=== PATIENT | male | born 1970 | race Caucasian/White ===

== ENCOUNTER 2020-11-24 11:11 | Day surgery (SDC) | payer OTHER ==
[~2020-11-24] VITALS: Ht 180.3 cm; Wt 134.0 kg
[~2020-11-24 11:11] MED LIST: ALBU90OI INH; AZIT500 PO; Adipex-P37.5 M1; BISHYD2.5 PO; Bisoprolol Fumar5 MG; CODACE30 PO; CODGUAEL PO; Fenofibrate200 MG PO; IBUP800 PO; LEVSOD50 PO; Norco 7.5-3251 EACH; PROCODE120 PO; Percocet 5-3251 EACH; RXCODACET PO; RXNAPNA550 PO; Zithromax250 MG PO
--- NOTE | 2020-11-24 11:38 | NUR ---
11/24/20 1138 Karley Pereira charted by brenden de dios rn
[2020-11-24] MEDS ORDERED: NAPR220 PO (11:49)
--- NOTE | 2020-11-24 13:10 | NUR ---
11/24/20 1310 Helen Koroma EPI 0.15MG MIXED WITH BUPIVACAINE 0.5% FOR A MIXTURE OF BUPIVACAINE 0.5% W/EPI 1:200,000 FOR INJECTION BY PHYSICIAN AT END OF CASE
== END 2020-11-24 14:33 | disposition home or self-care (01) ==
LOC: ORSCSDS 11:11
PROVIDERS: Podiatrist Foot & Ankle Surgery
PROC: 0SGN04Z Fusion of Left Metatarsal-Phalangeal Joint with Internal Fixation Device, Open Approach (ICD-10-PCS; principal; 2020-11-24 12:30)
DX: M20.22 Hallux rigidus, left foot (principal); I10 Essential (primary) hypertension; G47.33 Obstructive sleep apnea (adult) (pediatric); E11.9 Type 2 diabetes mellitus without complications; Z87.891 Personal history of nicotine dependence; E66.01 Morbid (severe) obesity due to excess calories; Z68.41 Body mass index [BMI] 40.0-44.9, adult; Z79.899 Other long term (current) drug therapy
CPT/HCPCS: 82947; A9270; C1713; C1769; J0171; J0690; J1100; J1885; J2250; J2405; J2704; J3010; J7120

== ENCOUNTER → 2022-09-04 | Outpatient (CLI) | payer BC ==
[~2022-09-04] MED LIST changes: +NAPR220 PO
[2022-09-04 12:17] LABS: BASOPHILS ABSOLUTE AUTO 0.06 K/mm3 (0.00-0.23); BASOPHILS PERCENT AUTO 1 % (0-2); EOSINOPHILS ABSOLUTE AUTO 0.23 K/mm3 (0.00-0.68); EOSINOPHILS PERCENT AUTO 4 % (0-6); Hemoglobin 16.8 g/dL (13.5-17.5); IMMATURE GRAN ABSOLUTE AUTO 0.07 K/mm3 (0.00-0.10); IMMATURE GRAN PERCENT AUTO 1 % (0-1); LYMPHOCYTES ABSOLUTE AUTO 1.52 K/mm3 (0.84-5.20); LYMPHOCYTES PERCENT AUTO 23 % (21-46); MONOCYTES ABSOLUTE AUTO 0.72 K/mm3 (0.16-1.47); MONOCYTES PERCENT AUTO 11 % (4-13); Mean Corpuscular HGB 29.9 pg (26.0-34.0); Mean Corpuscular HGB Conc 33.6 g/dL (31.5-36.5); Mean Corpuscular Volume 89 fL (80-100); Mean Platelet Volume 10.3 fL (9.1-12.4); NEUTROPHILS PERCENT AUTO 60 % (41-73); Platelet Count 181 K/mm3 (150-400); RDW Coefficient Variation 13.3 % (11.7-14.2); RDW Standard Deviation 43.3 fL (35.1-46.3); Red Blood Cell Count 5.62 M/mm3 (4.30-5.90)
[2022-09-04 12:27] LABS: Albumin, Blood 4.2 g/dL (3.4-5.0); Albumin/Globulin Ratio 1.2 (0.8-1.8); Bilirubin, Total 0.3 mg/dL (0.1-1.0); Bun/Creatinine Ratio 22.4 (12.0-20.0); Calcium, Blood 9.6 mg/dL (8.5-10.1); Creatinine, Blood 0.76 mg/dL (0.60-1.20); Globulin, Blood 3.5 g/dL (2.2-4.0); Potassium, Blood 4.3 mmol/L (3.5-5.5); Total Protein, Blood 7.7 g/dL (6.4-8.2)
== END | disposition home or self-care (01) ==
LOC: LAB SHORT 12:08 → LAB 12:08
PROVIDERS: Family Medicine
DX: R07.89 Other chest pain (principal); R06.00 Dyspnea, unspecified
CPT/HCPCS: 80053; 83880; 84484; 85025; 85379

== ENCOUNTER 2024-08-10 10:27 | Observation (INO) | payer BC ==
[~2024-08-10] VITALS: Ht 177.8 cm; Wt 139.2 kg
[2024-08-10] VITALS (14 sets, daily range): BP systolic 120–174; BP diastolic 74–136
[~2024-08-10 10:27] MED LIST changes: -Bisoprolol Fumar5 MG; +Bisoprolol Fumar5 MG PO; -LEVSOD50 PO; +LEVSOD75 PO
[2024-08-10] MEDS ORDERED: Lactated Ringer's 1,000 ML IV SCH ×2 (10:50→16:35)
[2024-08-10 11:29] LABS: BASOPHILS ABSOLUTE AUTO 0.11 K/mm3 (0.00-0.23); BASOPHILS PERCENT AUTO 2 % (0-2); EOSINOPHILS ABSOLUTE AUTO 0.07 K/mm3 (0.00-0.68); EOSINOPHILS PERCENT AUTO 1 % (0-6); Hematocrit 52.6 % (37.0-53.0); Hemoglobin 18.5 g/dL (13.5-17.5); IMMATURE GRAN ABSOLUTE AUTO 0.16 K/mm3 (0.00-0.10); IMMATURE GRAN PERCENT AUTO 2 % (0-1); LYMPHOCYTES ABSOLUTE AUTO 1.16 K/mm3 (0.84-5.20); LYMPHOCYTES PERCENT AUTO 17 % (21-46); MONOCYTES ABSOLUTE AUTO 0.88 K/mm3 (0.16-1.47); MONOCYTES PERCENT AUTO 13 % (4-13); Mean Corpuscular HGB 29.6 pg (26.0-34.0); Mean Corpuscular HGB Conc 35.2 g/dL (31.5-36.5); Mean Corpuscular Volume 84 fL (80-100); Mean Platelet Volume 9.4 fL (9.1-12.4); NEUTROPHILS ABSOLUTE AUTO 4.65 K/mm3 (1.96-9.15); NEUTROPHILS PERCENT AUTO 66 % (41-73); Platelet Count 174 K/mm3 (150-400); RDW Coefficient Variation 13.8 % (11.7-14.2); RDW Standard Deviation 42.5 fL (35.1-46.3); Red Blood Cell Count 6.24 M/mm3 (4.30-5.90); White Blood Cell Count 7.03 K/mm3 (4.00-11.30)
[2024-08-10 11:57] LABS: Albumin, Blood 4.3 g/dL (3.4-5.0); Bilirubin, Total 1.1 mg/dL (0.1-1.0); Bun/Creatinine Ratio 15.5 (12.0-20.0); Calcium, Blood 9.8 mg/dL (8.5-10.1); Creatinine, Blood 0.58 mg/dL (0.60-1.20); Globulin, Blood 4.1 g/dL (2.2-4.0); Magnesium, Blood 2.1 mg/dL (1.6-2.4); Phosphorus, Blood 1.5 mg/dL (2.5-4.9); Total Protein, Blood 8.4 g/dL (6.4-8.2)
[2024-08-10] MEDS ORDERED: Ondansetron HCl 2 MG / ML 2ML Vial IV ONE (12:15)
[2024-08-10] MEDS ORDERED: Famotidine 20 MG Tab PO ONE (12:15)
[2024-08-10] MEDS ORDERED: Mag Hydrox/AL Hydrox/Simeth 30 ML UDC PO ONE (12:15)
[2024-08-10] MEDS ORDERED: Potassium Chloride 20 MEQ TabCR PO ONE (12:20)
[2024-08-10] MEDS ORDERED: NS 1,000 ML IV SCH (12:20)
[2024-08-10] MEDS ORDERED: Potassium Chloride 20 MEQ/15 ML UDC PO ONE (16:45)
[2024-08-10] MEDS ORDERED: D5W-LR 1,000 ML IV SCH (16:55)
[2024-08-10] MEDS ORDERED: Potassium Chl 20MEQ/Water100ML 100 ML IV ONE (16:55)
[2024-08-10] MEDS ORDERED: Insulin Human Regular 100 UNIT in NS 100 ML IV SCH (16:55)
[2024-08-10 17:04] LABS: Bun/Creatinine Ratio 14.2 (12.0-20.0); Calcium, Blood 8.9 mg/dL (8.5-10.1); Creatinine, Blood 0.56 mg/dL (0.60-1.20); Potassium, Blood 3.9 mmol/L (3.5-5.5)
[2024-08-10] MEDS ORDERED: FLU VACC TS2024-25(6MOS UP)/PF 45 MCG/0.5 ML SYRINGE IM SCH (17:10)
[2024-08-10] MEDS ORDERED: Ondansetron HCl 2 MG / ML 2ML Vial IV PRN (17:10)
[2024-08-10] MEDS ORDERED: D5W-1/2NS 1,000 ML IV SCH (17:10)
[2024-08-10] MEDS ORDERED: Sodium Phosphate 30 MM in Dextrose 5% 500 ML IV STA (17:17)
[2024-08-10] MEDS ORDERED: NS 1,000 ML IV ONE (17:39)
[2024-08-10] MEDS ORDERED: Enoxaparin 40 MG/0.4 ML SYR SC SCH (18:00)
[2024-08-10] MEDS ORDERED: METF500 PO (18:38)
[2024-08-10] MEDS ORDERED: ATOR80 PO (18:40)
[2024-08-10 18:41] LABS: Bun/Creatinine Ratio 12.8 (12.0-20.0); Calcium, Blood 8.7 mg/dL (8.5-10.1); Creatinine, Blood 0.55 mg/dL (0.60-1.20); Potassium, Blood 3.8 mmol/L (3.5-5.5)
[2024-08-10] MEDS ORDERED: LIDO700A20 TOP (18:41)
[2024-08-10] MEDS ORDERED: TRIA50 PO (18:41)
[2024-08-10] MEDS ORDERED: JARDIANCE25 MG PO (18:42)
--- NOTE | 2024-08-10 18:51 | NUR ---
PT ARRIVES TO ICU 8 FROM ER AT 1825. PT IS A/O X4, ABLE TO AMB SELF TO BED FROM [facility]. ON INSULIN GTT AT 1.5 UNITS/HR WITH D5LR AT 150ML/HR. POTASSIUM REPLACEMENT FINISHING UP. PT STATES HE USES HOME CPAP AT NIGHT AND IS TEXTING FAMILY TO BRING IT IN . NO SIGN OF DISTRESS.
--- NOTE | 2024-08-10 20:13 | NUR ---
ASSUMPTION OF CARE ASSUMED CARE OF PATIENT AT 1900. BEDSIDE SHIFT REPORT RECEIVED FROM MARTINE RN. PT RESTING IN BED, ALERT AND ORIENTED X3, UNSURE OF MONTH/YEAR. PT ANSWERS QUESTIONS APPROPRIATELY, FOLLOWS DIRECTION WHEN PROMPTED AND IS ABLE TO MAKE HIS NEEDS KNOWN. PT MOVES EXTREMITIES EQUALLY BILATERALLY. PT COMPLAINING OF 5/10 PAIN IN HIS BACK WHICH HE STATES IS CHRONIC FOR HIM. HR 90-110 SINUS, MAP >65, PT DENIES CP/PRESSURE. PT ON RA, OXYGEN SATURATION >95%. ABDOMEN SOFT, BOWEL TONES ACTIVE THROUGHOUT. PIV IN PLACE TO RAC AND TWO IN PLACE TO THE LAC. INSULIN INFUSING AT 1.12UNITS/HR, D5 LR INFUSING AT 150MLS/HR. BED IN LOWEST POSITION, CALL LIGHT WITHIN REACH, CARE CONTINUES.
[2024-08-10] MEDS ORDERED: NS 250 ML IV PRN (20:30)
[2024-08-11] VITALS (19 sets, daily range): BP systolic 124–174; BP diastolic 60–128
[2024-08-11 00:10] LABS: Bun/Creatinine Ratio 10.9 (12.0-20.0); Calcium, Blood 8.5 mg/dL (8.5-10.1); Creatinine, Blood 0.55 mg/dL (0.60-1.20); Potassium, Blood 3.8 mmol/L (3.5-5.5)
[2024-08-11] MEDS ORDERED: Potassium Chl 20MEQ/Water100ML 100 ML IV SCH (01:15)
[2024-08-11] MEDS ORDERED: D5W-1/2NS 1,000 ML IV SCH (02:10)
[2024-08-11 05:09] LABS: BASOPHILS ABSOLUTE AUTO 0.06 K/mm3 (0.00-0.23); BASOPHILS PERCENT AUTO 1 % (0-2); EOSINOPHILS PERCENT AUTO 2 % (0-6); Hematocrit 47.2 % (37.0-53.0); Hemoglobin 16.1 g/dL (13.5-17.5); IMMATURE GRAN PERCENT AUTO 2 % (0-1); LYMPHOCYTES ABSOLUTE AUTO 1.29 K/mm3 (0.84-5.20); LYMPHOCYTES PERCENT AUTO 21 % (21-46); MONOCYTES ABSOLUTE AUTO 0.94 K/mm3 (0.16-1.47); MONOCYTES PERCENT AUTO 15 % (4-13); Mean Corpuscular HGB Conc 34.1 g/dL (31.5-36.5); Mean Corpuscular Volume 88 fL (80-100); Mean Platelet Volume 8.9 fL (9.1-12.4); NEUTROPHILS ABSOLUTE AUTO 3.71 K/mm3 (1.96-9.15); NEUTROPHILS PERCENT AUTO 60 % (41-73); Platelet Count 159 K/mm3 (150-400); RDW Coefficient Variation 14.4 % (11.7-14.2); RDW Standard Deviation 45.8 fL (35.1-46.3); Red Blood Cell Count 5.37 M/mm3 (4.30-5.90)
[2024-08-11 05:50] LABS: Albumin, Blood 3.6 g/dL (3.4-5.0); Albumin/Globulin Ratio 1.1 (0.8-1.8); Bilirubin, Total 0.5 mg/dL (0.1-1.0); Bun/Creatinine Ratio 12.3 (12.0-20.0); Calcium, Blood 8.6 mg/dL (8.5-10.1); Creatinine, Blood 0.49 mg/dL (0.60-1.20); Globulin, Blood 3.4 g/dL (2.2-4.0); Magnesium, Blood 2.2 mg/dL (1.6-2.4); Phosphorus, Blood 1.4 mg/dL (2.5-4.9); Potassium, Blood 3.2 mmol/L (3.5-5.5)
[2024-08-11] MEDS ORDERED: Levothyroxine Sodium 0.075 MG Tab PO SCH (06:00)
[2024-08-11] MEDS ORDERED: Lidocaine 4% 1 Patch TOP PRN (06:30)
[2024-08-11] MEDS ORDERED: Potassium Phosphate Dibasic 30 MM in Dextrose 5% 500 ML IV STA (06:37)
--- NOTE | 2024-08-11 06:47 | NUR ---
SHIFT SUMMARY NO ACUTE CHANGES THIS SHIFT. PT CONTINUES TO REST IN BED, SLEEPING BUT AROUSABLE. PT ALERT AND ORIENTED, ANSWERS QEUSTIONS APPROPRIATELTY, FOLLOWS DIRECTION WEHN PROMPTED AND IS ABLE TO MAKE HIS NEEDS KNOWN. PT MOVES EXTREMITIES EQUALLY BILATERALLY, AMBULATES IN THE ROOM WITH SBA. HR 90-110'S SINUS MAP >65. PT ON RA, CPAP AT NOC, OXYGEN SATURATION >95%. ABDOMEN SOFT, BOWEL TONES ACTIVE THROUGHOUT. PT USES URINAL TO VOID. PIV IN PLACE TO RAC AND TWO IN THE LAC. INSULIN AND D10 PLACED ON HOLD THIS AM PER DR. RODRIGUEZ DUE TO LAB RESULTS. BED IS IN LOWEST POSITION, CALL LIGHT WITHIN REACH, CARE CONTINUES.
[2024-08-11] MEDS ORDERED: Potassium Chloride 20 MEQ TabCR PO ONE (07:00)
--- NOTE | 2024-08-11 07:55 | NUR ---
START OF SHIFT THIS NURSE ASSUMED CARE AT APPROXIMATELY 0700. PT APPROPRIATE AND PLEASANT ON CPAP. PT DENIES ANY COMPLAINTS OR REQUESTS. WILL CONTINUE WITH THE PLAN OF CARE.
[2024-08-11] MEDS ORDERED: Potassium Phosphate Dibasic 30 MM in Dextrose 5% 500 ML IV ONE (08:00)
[2024-08-11] MEDS ORDERED: Metoprolol Succinate 50 MG TABCR PO SCH ×2 (09:00)
[2024-08-11 10:00] LABS: Bun/Creatinine Ratio 11.2 (12.0-20.0); Calcium, Blood 8.7 mg/dL (8.5-10.1); Creatinine, Blood 0.45 mg/dL (0.60-1.20); Potassium, Blood 3.6 mmol/L (3.5-5.5)
[2024-08-11 12:42] LABS: Calcium, Blood 8.4 mg/dL (8.5-10.1); Creatinine, Blood 0.42 mg/dL (0.60-1.20); Potassium, Blood 3.5 mmol/L (3.5-5.5)
[2024-08-11] MEDS ORDERED: Insulin Glargine-Yfgn 100 Unit/mL 3 ML SYR SC SCH (14:00)
[2024-08-11] MEDS ORDERED: Potassium Chloride 40 MEQ in NS 250 ML IV ONE (15:40)
[2024-08-11] MEDS ORDERED: Insulin Human Lispro 100 Units/ML 3ML Syringe SC SCH (16:30)
--- NOTE | 2024-08-11 17:12 | NUR ---
SHIFT SUMMARY PT RESTING COMFORTABLY IN BED. PT STATED THAT HIS CHRONIC BACK PAIN WAS ALLEVIATED WITH REPOSITIONING AND WITH THE LIDOCAINE PATCH. INSULIN GTT HAS BEEN OFF SINCE APPROXIMATELY 1500 PER MD REQUEST. SLIDING SCALE AND LONG ACTING HAVE BEEN ORDERED, SEE EMAR. THE SISTER OF THE PT CAME TO BEDSIDE. PT HAS NO FURTHER COMPLAINTS OR CONCERNS AT THIS TIME. WILL CONTINUE WITH THE PLAN OF CARE UNTIL REPORT IS GIVEN TO ONCOMING STAFF.
--- NOTE | 2024-08-11 19:31 | NUR ---
ASSUMPTION OF CARE ASSUMED CARE OF PATIENT AT 1900, BEDSIDE SHIFT REPORT RECEIVED FROM MARTINE RN. PT RESTING IN BED, ALERT AND ORIENTED X4. PT ANSWERS QUESTIONS APPROPRIATELY, FOLLOWS DIRECTION WHEN PROMPTED AND IS ABLE TO MAKE HIS NEEDS KNOWN. PT MOVES EXTREMITIES EQUALLY BIALTERALLY, AMBULATES IN THE ROOM WITH MINIMAL ASSISTANCE FOR CORD MANAGEMENT. HR 90'S SINUS, MAP >65. PT ON RA, CPAP AT NOC, OXYGEN SATURATION >95%. ABDOMEN SOFT, BOWEL TONES ACTIVE THROUGHOUT. PT AMBULATES TO THE BEDSIDE TOILET TO VOID. PIV IN PLACE TO RAC, AND TWO IN THE LAC SL. BED IN LOWEST POSITION, CALL LIGHT WITHIN REACH, CARE CONTINUES.
[2024-08-11 20:01] LABS: Bun/Creatinine Ratio 9.8 (12.0-20.0); Calcium, Blood 8.8 mg/dL (8.5-10.1); Creatinine, Blood 0.51 mg/dL (0.60-1.20); Potassium, Blood 3.5 mmol/L (3.5-5.5)
[2024-08-12 03:01] VITALS: BP 147/101
[2024-08-12 03:13] LABS: BASOPHILS ABSOLUTE AUTO 0.06 K/mm3 (0.00-0.23); BASOPHILS PERCENT AUTO 1 % (0-2); EOSINOPHILS ABSOLUTE AUTO 0.17 K/mm3 (0.00-0.68); EOSINOPHILS PERCENT AUTO 3 % (0-6); Hematocrit 47.4 % (37.0-53.0); Hemoglobin 16.2 g/dL (13.5-17.5); IMMATURE GRAN ABSOLUTE AUTO 0.09 K/mm3 (0.00-0.10); IMMATURE GRAN PERCENT AUTO 2 % (0-1); LYMPHOCYTES ABSOLUTE AUTO 1.26 K/mm3 (0.84-5.20); LYMPHOCYTES PERCENT AUTO 25 % (21-46); MONOCYTES ABSOLUTE AUTO 0.78 K/mm3 (0.16-1.47); MONOCYTES PERCENT AUTO 15 % (4-13); Mean Corpuscular HGB 29.6 pg (26.0-34.0); Mean Corpuscular HGB Conc 34.2 g/dL (31.5-36.5); Mean Corpuscular Volume 87 fL (80-100); Mean Platelet Volume 9.2 fL (9.1-12.4); NEUTROPHILS ABSOLUTE AUTO 2.73 K/mm3 (1.96-9.15); NEUTROPHILS PERCENT AUTO 54 % (41-73); Platelet Count 148 K/mm3 (150-400); RDW Coefficient Variation 14.5 % (11.7-14.2); Red Blood Cell Count 5.47 M/mm3 (4.30-5.90); White Blood Cell Count 5.09 K/mm3 (4.00-11.30)
[2024-08-12 03:28] LABS: Calcium, Blood 8.7 mg/dL (8.5-10.1); Creatinine, Blood 0.46 mg/dL (0.60-1.20); Potassium, Blood 3.6 mmol/L (3.5-5.5)
--- NOTE | 2024-08-12 05:51 | NUR ---
SHIFT SUMMARY NO ACUTE CHANGES THIS SHIFT. PT CONTINUES TO REST IN BED, ALERT AND ORIENTED X4. PT ANSWERS QUESTIONS APPROPRIATELY, FOLLOWS DIRECTION WHEN PROMPTED AND IS ABLE TO MAKE HIS NEEDS KNOWN. PT MOVES EXTREMITIES EQUALLY BILATERALLY, AMBULATES IN THE ROOM WITH MINIMAL ASSISTANCE WITH CORD MANAGEMENT. HR 80'S SINUS, MAP >65. PT ON RA WHILE AWAKE, CPAP AT NOC, OXYGEN SATURATION >95%. ABDOMEN SOFT, BOWEL TONES ACTIVE THROUGHOUT. PT AMBULATES TO BEDSIDE TOILET TO VOID. PIV IN PLACE TO [facility] AND TWO IN THE LAC SL. BED IN LOWEST POSITION, CALL LIGHT WITHIN REACH, CARE CONTINUES.
[2024-08-12] MEDS ORDERED: Potassium Phosphate Dibasic 20 MM in Dextrose 5% 500 ML IV ONE (06:30)
[2024-08-12] MEDS ORDERED: Insulin Glargine-Yfgn 100 Unit/mL 3 ML SYR SC SCH (09:00)
[2024-08-12 10:26] LABS: CHOL/HDL RATIO 4.5; Cholesterol 187 mg/dL (50-200); HDL Cholesterol 42 mg/dL (>39); LDL/HDL RATIO Unable to Calculate; Low Density Lipoprotein Chol Unable to Calculate mg/dL (0-110); Triglycerides 507 mg/dL (30-160); Very Low Density Lipoprot Chol Unable to Calculate mg/dL (6-32)
[2024-08-12 10:39] LABS: LDL Direct Measurement 52 mg/dL (0-130)
--- NOTE | 2024-08-12 10:55 | NUR ---
THIS RN ASSUMED CARE OF PT AT 0700. PT IS ALERT AND ORIENTED X4, CALLS APPROPRIATELY AND FOLLOWS COMMANDS. PT HEART RATE IN THE 70s, BLOOD PRESSURE STABLE AT 149/98 MAP OF 111, PT DENIES CHEST PAIN UPON ASSESSMENT. PT IS ON ROOM AIR DURING THE DAY AND CPAP AT NIGHT, SATTING >95%, PT DENIES SHORTNESS OF BREATH UPON ASSESSMENT. WAS AT BEDSIDE THIS AM, DROPPED LANTUS FROM 25 UNITS TO 10 UNITS, SUGAR WAS ONLY 129 THIS AM. WILL CHANGE SOME OF THE MEDICATIONS AROUND THEN PT CAN POSSIBLY BE DISCHARGED LATER TODAY. NO OTHER INTERVENTIONS AT THIS TIME. PLAN OF CARE CONTINUED.
[2024-08-12] MEDS ORDERED: GEMF600 PO (15:11)
[2024-08-12 15:19] VITALS: BP 153/101
--- NOTE | 2024-08-12 15:24 | NUR ---
DISCHARGE: PT IS BEING DISCHARGED HOME PER , MEDICATIONS HAVE BEEN FAXED OVER TO [facility]. PT HAS BEEN EDUCATED ON MEDICATIONS AND WAS GIVEN AN EDUCATIONAL SHEET ON DIABETES AND HOW TO MANAGE WHEN SICK. PT IS TAKING A CAB HOME. PT HAD THREE IVs, ALL WERE TAKEN OUT AND PT TOLERATED WELL. PT WILL SCHEDULE A FOLLOW-UP APPOINTMENT IN 1-2 WEEKS WITH PCP. PLAN OF CARE CONTINUED.
== END 2024-08-12 16:42 | disposition home or self-care (01) ==
LOC: ER 10:27 → ICUE 10:28 → ERHOLD 10:28 → ICUE 18:36
PROVIDERS: Family Medicine; Student in an Organized Health Care Education/Training Program; ADMIT Internal Medicine
DX: E87.29 Other acidosis (principal); E87.6 Hypokalemia; E83.39 Other disorders of phosphorus metabolism; E11.9 Type 2 diabetes mellitus without complications; I10 Essential (primary) hypertension; E03.9 Hypothyroidism, unspecified; E78.5 Hyperlipidemia, unspecified; Z79.899 Other long term (current) drug therapy
CPT/HCPCS: 36415; 80048; 80053; 80061; 82010; 82947; 83036; 83605; 83690; 83721; 83735; 84100; 85025; 93005; 93010; 94660; 96365; 96372; 96375; 96376; 99285-25; A9270; G0378; J1650; J1815; J2405; J3480; J7030; J7042; J7060; J7120; J7121; J7131

== ENCOUNTER 2024-11-06 16:40 | Emergency (ER) | payer BC ==
[~2024-11-06] VITALS: Ht 160 cm; Wt 140.6 kg
[~2024-11-06 16:40] MED LIST changes: +ATOR80 PO; +GEMF600 PO; +JARDIANCE25 MG PO; +LIDO700A20 TOP; +METF500 PO; +TRIA50 PO
[2024-11-06 17:26] LABS: BASOPHILS ABSOLUTE AUTO 0.06 K/mm3 (0.00-0.23); BASOPHILS PERCENT AUTO 2 % (0-2); EOSINOPHILS ABSOLUTE AUTO 0.11 K/mm3 (0.00-0.68); EOSINOPHILS PERCENT AUTO 3 % (0-6); Hematocrit 49.7 % (37.0-53.0); Hemoglobin 16.7 g/dL (13.5-17.5); IMMATURE GRAN ABSOLUTE AUTO 0.03 K/mm3 (0.00-0.10); IMMATURE GRAN PERCENT AUTO 1 % (0-1); LYMPHOCYTES ABSOLUTE AUTO 1.15 K/mm3 (0.84-5.20); LYMPHOCYTES PERCENT AUTO 29 % (21-46); MONOCYTES ABSOLUTE AUTO 0.35 K/mm3 (0.16-1.47); MONOCYTES PERCENT AUTO 9 % (4-13); Mean Corpuscular HGB 30.8 pg (26.0-34.0); Mean Corpuscular HGB Conc 33.6 g/dL (31.5-36.5); Mean Corpuscular Volume 92 fL (80-100); Mean Platelet Volume 9.3 fL (9.1-12.4); NEUTROPHILS ABSOLUTE AUTO 2.22 K/mm3 (1.96-9.15); NEUTROPHILS PERCENT AUTO 57 % (41-73); Platelet Count 171 K/mm3 (150-400); RDW Coefficient Variation 13.7 % (11.7-14.2); RDW Standard Deviation 46.3 fL (35.1-46.3); Red Blood Cell Count 5.43 M/mm3 (4.30-5.90); White Blood Cell Count 3.92 K/mm3 (4.00-11.30)
[2024-11-06 17:47] LABS: Albumin, Blood 4.7 g/dL (3.4-5.0); Albumin/Globulin Ratio 1.6 (0.8-1.8); Bilirubin, Total 0.6 mg/dL (0.1-1.0); Bun/Creatinine Ratio 25.7 (12.0-20.0); Calcium, Blood 10.3 mg/dL (8.5-10.1); Creatinine, Blood 0.66 mg/dL (0.60-1.20); Potassium, Blood 3.7 mmol/L (3.5-5.5); Total Protein, Blood 7.7 g/dL (6.4-8.2)
[2024-11-06 18:46] VITALS: BP 159/96
[2024-11-06 21:01] LABS: Magnesium, Blood 1.9 mg/dL (1.6-2.4); Phosphorus, Blood 3.3 mg/dL (2.5-4.9)
== END 2024-11-06 22:23 | disposition home or self-care (01) ==
LOC: ER 16:40
PROVIDERS: Student in an Organized Health Care Education/Training Program
DX: R41.0 Disorientation, unspecified (principal); E03.9 Hypothyroidism, unspecified; E78.5 Hyperlipidemia, unspecified; I10 Essential (primary) hypertension; Z79.890 Hormone replacement therapy; Z79.84 Long term (current) use of oral hypoglycemic drugs; Z79.899 Other long term (current) drug therapy
CPT/HCPCS: 80053; 83735; 84100; 84484; 85025; 93005; 93010; 99285-25

== ENCOUNTER 2025-04-30 07:32 | Day surgery (SDC) | payer BC ==
[~2025-04-30] VITALS: Ht 177.8 cm; Wt 144.6 kg
[~2025-04-30 07:32] MED LIST changes: +Balanced Salt Epinephrine Irrigation Solution 500 mL IR SCH; +Moxifloxacin HCL 0.5 MG/0.1 ML 0.4MLSYR LEFTEYE SCH; +NS 500 ML IV ONE; +PHENYLEPHRINE\\TROPICAMIDE\\TETRACAINE OPHTHALMIC DILATING SOLN LEFTEYE PRN; +Povidone-Iodine 450 DROP/30 ML Solution LEFTEYE SCH; +Povidone-Iodine 450 DROP/30 ML Solution ONE; +Tetracaine HCl/Pf 0.5% Opth Soln 4 ml ONE
[2025-04-30] MEDS ORDERED: NS 500 ML IV ONE (08:45)
--- NOTE | 2025-04-30 08:48 | NUR ---
04/30/25 0848 Lisa Valdivia CALL LIGHT WITHIN REACH. EYE DROPS IN AT 0937
[2025-04-30] MEDS ORDERED: Midazolam HCl 1MG / ML 2ML Vial ONE (08:55)
[2025-04-30] MEDS ORDERED: Tetracaine HCl 0.5% Opth Soln 15 ml LEFTEYE ONE (09:08)
[2025-04-30 09:31] VITALS: BP 133/87
== END 2025-04-30 09:56 | disposition home or self-care (01) ==
LOC: ORSCSDS 07:32
PROVIDERS: Student in an Organized Health Care Education/Training Program
PROC: 08RK3JZ Replacement of Left Lens with Synthetic Substitute, Percutaneous Approach (ICD-10-PCS; principal; 2025-04-30 09:00)
DX: E11.36 Type 2 diabetes mellitus with diabetic cataract (principal); H25.813 Combined forms of age-related cataract, bilateral; I10 Essential (primary) hypertension; E78.5 Hyperlipidemia, unspecified; G47.33 Obstructive sleep apnea (adult) (pediatric); E07.9 Disorder of thyroid, unspecified; E66.9 Obesity, unspecified; Z68.42 Body mass index [BMI] 45.0-49.9, adult; Z79.84 Long term (current) use of oral hypoglycemic drugs; Z79.899 Other long term (current) drug therapy; Z87.891 Personal history of nicotine dependence
CPT/HCPCS: 82947; J2003; J2250; J7040; V2632

== ENCOUNTER 2025-05-07 07:53 | Day surgery (SDC) | payer BC ==
[~2025-05-07] VITALS: Ht 177.8 cm; Wt 143.1 kg
[~2025-05-07 07:53] MED LIST changes: -Moxifloxacin HCL 0.5 MG/0.1 ML 0.4MLSYR LEFTEYE SCH; +Moxifloxacin HCL 0.5 MG/0.1 ML 0.4MLSYR RIGHTEYE SCH; -PHENYLEPHRINE\\TROPICAMIDE\\TETRACAINE OPHTHALMIC DILATING SOLN LEFTEYE PRN; +PHENYLEPHRINE\\TROPICAMIDE\\TETRACAINE OPHTHALMIC DILATING SOLN RIGHTEYE PRN; -Povidone-Iodine 450 DROP/30 ML Solution LEFTEYE SCH; +Povidone-Iodine 450 DROP/30 ML Solution RIGHTEYE SCH
[2025-05-07] MEDS ORDERED: AIRSUPRA 90-810.7 GM IH (08:03)
[2025-05-07] MEDS ORDERED: EZET10 PO (08:04)
[2025-05-07] MEDS ORDERED: BACL10 PO (08:04)
[2025-05-07] MEDS ORDERED: Fenofibrate200 MG PO (08:05)
[2025-05-07] MEDS ORDERED: Dyazide 37.5-21 EACH PO (08:06)
[2025-05-07] MEDS ORDERED: NS 500 ML IV ONE (08:22)
[2025-05-07] MEDS ORDERED: Midazolam HCl 1MG / ML 2ML Vial ONE (08:28)
[2025-05-07] MEDS ORDERED: FentaNYL Citrate 50 MCG/ML 2 ML Injection ONE (08:28)
[2025-05-07 09:01] VITALS: BP 14/91
== END 2025-05-07 09:20 | disposition home or self-care (01) ==
LOC: ORSCSDS 07:53
PROVIDERS: Student in an Organized Health Care Education/Training Program
PROC: 08RJ3JZ Replacement of Right Lens with Synthetic Substitute, Percutaneous Approach (ICD-10-PCS; principal; 2025-05-07 09:00)
DX: E11.36 Type 2 diabetes mellitus with diabetic cataract (principal); H25.811 Combined forms of age-related cataract, right eye; Z96.1 Presence of intraocular lens; Z87.891 Personal history of nicotine dependence; E78.5 Hyperlipidemia, unspecified; I10 Essential (primary) hypertension; G47.33 Obstructive sleep apnea (adult) (pediatric); K21.9 Gastro-esophageal reflux disease without esophagitis; E07.9 Disorder of thyroid, unspecified; E66.9 Obesity, unspecified; Z68.42 Body mass index [BMI] 45.0-49.9, adult; Z79.84 Long term (current) use of oral hypoglycemic drugs; Z79.899 Other long term (current) drug therapy
CPT/HCPCS: 82947; J2003; J2250; J3010; J7040; V2632